=== PATIENT | female | born 1965 | race Caucasian/White ===

== ENCOUNTER 2017-09-25 18:06 | Emergency (ER) | payer MEDICARE, OTHER ==
[~2017-09-25] VITALS: Ht 180.3 cm; Wt 113.0 kg
[~2017-09-25 18:06] MED LIST: ALBU8.5H4 IH; AMIT-106 PO; CITA20TA11 PO; LORA-512 PO; MIR1T PO; NORCO10T PO; PANT-47 PO; [UNRECOGNIZED DRUG - OTHER] PO
[2017-09-25 18:10] VITALS: BP 122/81
[2017-09-25] MEDS ORDERED: HYDROcodone/acetaminophen 10/325mg tab PO ONE (20:00)
[2017-09-25] MEDS ORDERED: HYDR-3965 PO (20:05)
== END 2017-09-25 20:39 | disposition home or self-care (01) ==
LOC: ER 18:06
DX: S83.91XA Sprain of unspecified site of right knee, initial encounter (principal); K21.9 Gastro-esophageal reflux disease without esophagitis; Z98.890 Other specified postprocedural states; Z88.6 Allergy status to analgesic agent; Z88.8 Allergy status to other drugs, medicaments and biological substances; Z79.899 Other long term (current) drug therapy; Z56.0 Unemployment, unspecified; W11.XXXA Fall on and from ladder, initial encounter; Y93.39 Activity, other involving climbing, rappelling and jumping off; Y92.89 Other specified places as the place of occurrence of the external cause; Y99.8 Other external cause status
CPT/HCPCS: 29505; 73564; 99284

== ENCOUNTER 2019-02-08 21:15 | Emergency (ER) | payer MEDICARE, OTHER ==
[~2019-02-08] VITALS: Ht 180.3 cm; Wt 112.6 kg
[~2019-02-08 21:15] MED LIST changes: -AMIT-106 PO; +AMIT25TA9 PO; -CITA20TA11 PO; +CITA20TA28 PO
[2019-02-08 21:29] VITALS: BP 125/82
[2019-02-08] MEDS ORDERED: TETanus/Pertussis (Acell)/Diphther VAC/PF (Tdap-Adult) 0.5ml syringe IM ONE (22:20)
== END 2019-02-08 22:34 | disposition home or self-care (01) ==
LOC: ER 21:15
DX: S91.114A Laceration without foreign body of right lesser toe(s) without damage to nail, initial encounter (principal); J45.909 Unspecified asthma, uncomplicated; K21.9 Gastro-esophageal reflux disease without esophagitis; E03.9 Hypothyroidism, unspecified; Z98.890 Other specified postprocedural states; Z56.0 Unemployment, unspecified; Z88.5 Allergy status to narcotic agent; Z88.6 Allergy status to analgesic agent; Z88.8 Allergy status to other drugs, medicaments and biological substances; Z79.899 Other long term (current) drug therapy; W26.8XXA Contact with other sharp object(s), not elsewhere classified, initial encounter; Y93.89 Activity, other specified; Y92.89 Other specified places as the place of occurrence of the external cause; Y99.8 Other external cause status
CPT/HCPCS: 90471; 99283